=== PATIENT | male | born 1960 | race Caucasian/White ===

== ENCOUNTER 2021-10-19 08:41 | Inpatient (IN) | payer OTHER ==
[~2021-10-19] VITALS: Ht 172.7 cm; Wt 82.6 kg
[2021-10-19] MEDS ORDERED: LIDOCAINE HCL 1% 20ML VIAL (Pyxis) INJ INFIL STA (08:52)
[2021-10-19] MEDS ORDERED: SODIUM CHLORIDE 0.9% 1000ML BAG (SEPSIS BOLUS) IV ONE (09:00)
[2021-10-19] MEDS ORDERED: CEFTRIAXONE 1 G PREMIX 50 ML IV ONE (09:00)
[2021-10-19 09:37] LABS: CHLORIDE 104 mEq/L (98-107)
[2021-10-19 09:39] LABS: BASOPHILS % 0.5 % (0.0-2.0); EOSINOPHILS % 0.3 % (0.0-5.0); HEMATOCRIT. 23.7 % (42.0-52.0); HEMOGLOBIN. 7.8 g/dL (14.0-18.0); LYMPHOCYTES % 14.8 % (20.0-50.0); MEAN CORPUSCULAR HEMOGLOBIN 28.6 pg (28.0-32.0); MEAN CORPUSCULAR VOLUME 86.8 fL (80.0-94.0); MEAN PLATELET VOLUME 10.2 fl (7.4-10.4); MONOCYTES % 13.1 % (2.0-8.0); NEUTROPHILS % 71.3 % (40.0-76.0); PLATELET 122 x1000/uL (130-400); RED BLOOD CELL COUNT 2.73 mill/uL (4.7-6.1); RED CELL DISTRIBUTION WIDTH 16.8 % (11.6-14.6)
[2021-10-19 09:42] LABS: ETHANOL BLOOD < 10 mg/dL
[2021-10-19] MEDS ORDERED: HALOPERIDOL LACTATE 5MG/ML VIAL IM ONE (09:45)
[2021-10-19 09:52] LABS: BG BASE EXCESS -1.7 mmol/L (-2.0-2.0); BG CARBOXYHEMOGLOBIN 0.3 % (0.5-1.5); BG DEOXYHEMOGLOBIN 3.9 % (0.0-5.0); BG HCO3 ACT 21.8 mmol/L (22.0-26.0); BG METHEMOGLOBIN 0.3 % (0.0-1.5); BG OXYGEN SATURATION 96.1 % (92.0-98.5); BG OXYHEMOGLOBIN 95.5 % (94.0-97.0); BG PCO2 32.5 mmHg (35.0-45.0); BG PH 7.445 (7.350-7.450); BG PO2 85.5 mmHg (75.0-100.0); BG TOTAL HEMOGLOBIN 9.9 g/dL (12.0-18.0); BG VENT MODE ROOM AIR
[2021-10-19] MEDS ORDERED: IPRATROPIUM/ALBUTEROL 0.5-3(2.5)MG/3ML NEB NEB PRN (15:30)
[2021-10-19] MEDS ORDERED: CLONIDINE 0.1MG TABLET PO PRN (15:30)
[2021-10-19] MEDS ORDERED: DIPHENHYDRAMINE 50MG/ML VIAL IV PRN (15:30)
[2021-10-19] MEDS ORDERED: ACETAMINOPHEN 325MG TABLET PO PRN (15:30)
[2021-10-19] MEDS ORDERED: LORAZEPAM 2MG/ML CPJ IV PRN (15:30)
[2021-10-19] MEDS ORDERED: GUAIFENESIN 200MG/10ML SUGAR FREE UDC PO PRN (15:30)
[2021-10-19] MEDS ORDERED: DOCUSATE SODIUM 100MG CAPSULE PO PRN (15:30)
[2021-10-19] MEDS ORDERED: MAGNESIUM/ALUMINUM HYDROXIDE/SIMETHICONE 30ML UDC PO PRN (15:30)
[2021-10-19] MEDS ORDERED: NA PHOS,M-B/NA PHOS,DI-BA ENEMA 118ML PR PRN (15:30)
[2021-10-19] MEDS ORDERED: ONDANSETRON HCL 4MG/2ML INJ IV PRN (15:30)
[2021-10-19] MEDS ORDERED: NALOXONE HCL 0.4MG/ML VIAL IV PRN (15:45)
[2021-10-19] MEDS ORDERED: LEVOTHYROXINE SODIUM 50MCG TABLET PO NR (16:45)
[2021-10-19 19:42] LABS: VITAMIN B12 SERUM 1366 pg/mL (211-911)
[2021-10-19 19:49] LABS: FOLIC ACID (FOLATE) SERUM > 20.00 ng/mL (>5.38)
[2021-10-19 23:04] LABS: HEMATOCRIT 21.5 % (42.0-52.0); HEMOGLOBIN 7.3 g/dL (14.0-18.0)
[2021-10-20 00:33] LABS: HEMATOCRIT 21.3 % (42.0-52.0); HEMOGLOBIN 7.3 g/dL (14.0-18.0)
[2021-10-20 04:31] VITALS: BP 115/74
[2021-10-20] MEDS ORDERED: SPIR25TA6 MT (07:46)
[2021-10-20] MEDS ORDERED: EPOE200014 SQ (07:46)
[2021-10-20] MEDS ORDERED: FURO20TA4 PO (07:46)
[2021-10-20] MEDS ORDERED: OMEP10CA5 MT (07:46)
[2021-10-20 08:00] VITALS: BP 113/50
[2021-10-20] MEDS: PANTOPRAZOLE SODIUM 40 MG/VIAL IV SCH (09:00)
[2021-10-20] MEDS: FUROSEMIDE 40MG/4ML VIAL IV SCH (09:00)
[2021-10-20 10:20] LABS: HEMATOCRIT 23.1 % (42.0-52.0); HEMOGLOBIN 7.5 g/dL (14.0-18.0)
[2021-10-20 10:29] LABS: CHLORIDE 107 mEq/L (98-107)
[2021-10-20 12:00] VITALS: BP 114/72
[2021-10-20 16:00] VITALS: BP 114/51
[2021-10-20 20:00] VITALS: BP 134/59
[2021-10-20 22:01] LABS: HEMATOCRIT 22.8 % (42.0-52.0); HEMOGLOBIN 7.5 g/dL (14.0-18.0)
[2021-10-20] MEDS: LACTULOSE 20G/30ML UDC PO SCH (22:05)
[2021-10-21] VITALS: BP 101/52
[2021-10-21 00:54] LABS: HEMATOCRIT 21.8 % (42.0-52.0); HEMOGLOBIN 7.3 g/dL (14.0-18.0)
[2021-10-21 04:00] VITALS: BP 108/58
[2021-10-21] MEDS: LACTULOSE 20G/30ML UDC PO SCH ×3 (06:00→22:34)
[2021-10-21 07:41] LABS: INR 1.3; PROTHROMBIN TIME 13.9 sec (9.6-11.0)
[2021-10-21 07:43] LABS: BASOPHILS % 0.6 % (0.0-2.0); EOSINOPHILS % 2.1 % (0.0-5.0); HEMOGLOBIN. 8.3 g/dL (14.0-18.0); LYMPHOCYTES % 22.9 % (20.0-50.0); MEAN CORPUSCULAR HEMOGLOBIN 29.6 pg (28.0-32.0); MEAN CORPUSCULAR VOLUME 88.6 fL (80.0-94.0); MEAN PLATELET VOLUME 9.4 fl (7.4-10.4); MONOCYTES % 13.9 % (2.0-8.0); NEUTROPHILS % 60.5 % (40.0-76.0); PLATELET 134 x1000/uL (130-400); RED BLOOD CELL COUNT 2.82 mill/uL (4.7-6.1); RED CELL DISTRIBUTION WIDTH 16.5 % (11.6-14.6)
[2021-10-21 08:00] VITALS: BP 112/59
[2021-10-21 08:12] LABS: CHLORIDE 108 mEq/L (98-107)
[2021-10-21] MEDS: FUROSEMIDE 40MG/4ML VIAL IV SCH (10:05)
[2021-10-21] MEDS: PANTOPRAZOLE SODIUM 40 MG/VIAL IV SCH (10:05)
[2021-10-21 12:00] VITALS: BP 115/61
[2021-10-21 16:00] VITALS: BP 100/56
[2021-10-21] MEDS ORDERED: PROPOFOL 200MG/20ML VIAL IV ONE ×2 (17:41→17:55)
[2021-10-21] MEDS ORDERED: LIDOCAINE HCL 1% 20ML VIAL (Pyxis) INJ ONE (17:41)
[2021-10-21 20:00] VITALS: BP 110/63
[2021-10-21 20:27] LABS: HEMATOCRIT 23.5 % (42.0-52.0); HEMOGLOBIN 7.8 g/dL (14.0-18.0)
[2021-10-21] MEDS: VANCOMYCIN 1 G PREMIX 200 ML IV SCH (23:11)
[2021-10-22] VITALS: BP 114/59
[2021-10-22 00:35] LABS: HEMATOCRIT 23.1 % (42.0-52.0); HEMOGLOBIN 7.6 g/dL (14.0-18.0)
[2021-10-22 04:00] VITALS: BP 132/62
[2021-10-22] MEDS: LACTULOSE 20G/30ML UDC PO SCH ×3 (06:36→22:47)
[2021-10-22 07:55] LABS: BASOPHILS % 1.1 % (0.0-2.0); EOSINOPHILS % 1.5 % (0.0-5.0); HEMATOCRIT. 22.3 % (42.0-52.0); HEMOGLOBIN. 7.6 g/dL (14.0-18.0); LYMPHOCYTES % 23.2 % (20.0-50.0); MEAN CORPUSCULAR HEMOGLOBIN 29.8 pg (28.0-32.0); MEAN CORPUSCULAR VOLUME 87.7 fL (80.0-94.0); MEAN PLATELET VOLUME 9.3 fl (7.4-10.4); MONOCYTES % 13.1 % (2.0-8.0); NEUTROPHILS % 61.1 % (40.0-76.0); PLATELET 117 x1000/uL (130-400); RED BLOOD CELL COUNT 2.54 mill/uL (4.7-6.1); RED CELL DISTRIBUTION WIDTH 16.9 % (11.6-14.6)
[2021-10-22 08:00] VITALS: BP 143/74
[2021-10-22] MEDS: PANTOPRAZOLE SODIUM 40 MG/VIAL IV SCH (08:48)
[2021-10-22] MEDS: FUROSEMIDE 40MG/4ML VIAL IV SCH (08:48)
[2021-10-22 12:00] VITALS: BP 116/56
[2021-10-22] MEDS ORDERED: SODIUM BICARBONATE 4% (2.4MEQ) 5ML VIAL IV ONE (12:23)
[2021-10-22] MEDS ORDERED: LIDOCAINE HCL 1% 20ML VIAL (Pyxis) INJ ONE (12:23)
[2021-10-22] MEDS: HYDROCODONE/ACETAMINOPHEN 5/325MG TABLET PO PRN (14:10)
[2021-10-22] MEDS: VANCOMYCIN 1 G PREMIX 200 ML IV SCH (15:30)
[2021-10-22 16:00] VITALS: BP 94/42
[2021-10-22 18:06] LABS: INR 1.5; PROTHROMBIN TIME 15.7 sec (9.6-11.0)
[2021-10-22 20:00] VITALS: BP 114/62
[2021-10-23] VITALS: BP 116/58
[2021-10-23 04:00] VITALS: BP 103/55
[2021-10-23] MEDS: LACTULOSE 20G/30ML UDC PO SCH ×3 (06:17→22:07)
[2021-10-23 08:00] VITALS: BP 99/55
[2021-10-23] MEDS: PANTOPRAZOLE SODIUM 40 MG/VIAL IV SCH ×2 (09:00→17:51)
[2021-10-23] MEDS: FUROSEMIDE 40MG/4ML VIAL IV SCH (09:00)
[2021-10-23] MEDS: VANCOMYCIN 1 G PREMIX 200 ML IV SCH (10:30)
[2021-10-23] MEDS ORDERED: POTASSIUM CHLORIDE 20MEQ TABLET SR PO SCH (10:45)
[2021-10-23 12:00] VITALS: BP 107/61
[2021-10-23 16:00] VITALS: BP 117/67
[2021-10-23 20:00] VITALS: BP 108/69
[2021-10-23] MEDS: WATER IV SCH ×2 (21:42→23:43)
[2021-10-23] MEDS: DEXTROSE IV SCH ×2 (21:42→23:43)
[2021-10-23] MEDS: PENICILLIN POTASSIUM IV SCH ×2 (21:42→23:43)
[2021-10-24] VITALS: BP 106/57
[2021-10-24 04:00] VITALS: BP 128/56
[2021-10-24] MEDS: PENICILLIN POTASSIUM IV SCH ×5 (04:54→19:51)
[2021-10-24] MEDS: WATER IV SCH ×5 (04:54→19:51)
[2021-10-24] MEDS: DEXTROSE IV SCH ×5 (04:54→19:51)
[2021-10-24] MEDS: LACTULOSE 20G/30ML UDC PO SCH ×3 (05:08→22:00)
[2021-10-24 06:49] LABS: EOSINOPHILS % 1.7 % (0.0-5.0); HEMATOCRIT. 22.4 % (42.0-52.0); HEMOGLOBIN. 7.7 g/dL (14.0-18.0); LYMPHOCYTES % 22.2 % (20.0-50.0); MEAN CORPUSCULAR HEMOGLOBIN 30.3 pg (28.0-32.0); MEAN CORPUSCULAR VOLUME 87.4 fL (80.0-94.0); MEAN PLATELET VOLUME 9.4 fl (7.4-10.4); MONOCYTES % 13.6 % (2.0-8.0); NEUTROPHILS % 61.5 % (40.0-76.0); PLATELET 102 x1000/uL (130-400); RED BLOOD CELL COUNT 2.56 mill/uL (4.7-6.1); RED CELL DISTRIBUTION WIDTH 16.5 % (11.6-14.6)
[2021-10-24 08:00] VITALS: BP 105/58
[2021-10-24] MEDS ORDERED: POTASSIUM CHLORIDE 20MEQ TABLET SR PO SCH (08:45)
[2021-10-24] MEDS ORDERED: FUROSEMIDE 20MG/2ML VIAL IVP SCH (09:00)
[2021-10-24] MEDS: PANTOPRAZOLE SODIUM 40 MG/VIAL IV SCH ×2 (09:13→16:45)
[2021-10-24] MEDS ORDERED: POTASSIUM CHLORIDE 20MEQ TABLET SR PO NR (09:15)
[2021-10-24 12:00] VITALS: BP 105/60
[2021-10-24] MEDS: HYDROCODONE/ACETAMINOPHEN 5/325MG TABLET PO PRN (12:55)
[2021-10-24 16:00] VITALS: BP 109/68
[2021-10-24] MEDS ORDERED: DIATR MEGLU/DIATRIZOATE SOLN 30ML PO NR (16:00)
[2021-10-24 20:00] VITALS: BP 95/67
[2021-10-25] VITALS: BP 106/66
[2021-10-25] MEDS: WATER IV SCH ×5 (00:35→16:21)
[2021-10-25] MEDS: PENICILLIN POTASSIUM IV SCH ×5 (00:35→16:21)
[2021-10-25] MEDS: DEXTROSE IV SCH ×5 (00:35→16:21)
[2021-10-25 04:00] VITALS: BP 110/57
[2021-10-25] MEDS: LACTULOSE 20G/30ML UDC PO SCH ×2 (06:46→14:38)
[2021-10-25 07:25] LABS: BASOPHILS % 0.8 % (0.0-2.0); EOSINOPHILS % 1.2 % (0.0-5.0); HEMATOCRIT. 23.6 % (42.0-52.0); LYMPHOCYTES % 19.6 % (20.0-50.0); MEAN CORPUSCULAR HEMOGLOBIN 29.4 pg (28.0-32.0); MEAN CORPUSCULAR VOLUME 87.2 fL (80.0-94.0); MEAN PLATELET VOLUME 9.4 fl (7.4-10.4); MONOCYTES % 12.1 % (2.0-8.0); NEUTROPHILS % 66.3 % (40.0-76.0); PLATELET 101 x1000/uL (130-400); RED BLOOD CELL COUNT 2.71 mill/uL (4.7-6.1); RED CELL DISTRIBUTION WIDTH 16.9 % (11.6-14.6)
[2021-10-25 08:00] VITALS: BP 119/62
[2021-10-25] MEDS: PANTOPRAZOLE SODIUM 40 MG/VIAL IV SCH ×2 (09:36→16:35)
[2021-10-25 12:00] VITALS: BP 107/57
[2021-10-25] MEDS ORDERED: DIATR MEGLU/DIATRIZOATE SOLN 30ML PO SCH (12:00)
[2021-10-25] MEDS ORDERED: METR500T MT (15:49)
[2021-10-25 15:53] VITALS: BP 107/57
[2021-10-25 16:34] VITALS: BP 108/72
== END 2021-10-25 17:00 | disposition home or self-care (01) | DRG 441 ==
LOC: ER 08:41 → MICUSO 12:40 → 8WST 10-20 03:23
PROVIDERS: ADMIT Internal Medicine; ATTEND Internal Medicine
PROC: 06L38CZ Occlusion of Esophageal Vein with Extraluminal Device, Via Natural or Artificial Opening Endoscopic (ICD-10-PCS; principal; 2021-10-21)
PROC: 0DB98ZX Excision of Duodenum, Via Natural or Artificial Opening Endoscopic, Diagnostic (ICD-10-PCS; 2021-10-21)
PROC: 0DB78ZX Excision of Stomach, Pylorus, Via Natural or Artificial Opening Endoscopic, Diagnostic (ICD-10-PCS; 2021-10-21)
PROC: 0W9G3ZZ Drainage of Peritoneal Cavity, Percutaneous Approach (ICD-10-PCS; 2021-10-22)
DX: K72.00 Acute and subacute hepatic failure without coma (principal); I50.33 Acute on chronic diastolic (congestive) heart failure; N17.0 Acute kidney failure with tubular necrosis; E46 Unspecified protein-calorie malnutrition; I13.0 Hypertensive heart and chronic kidney disease with heart failure and stage 1 through stage 4 chronic kidney disease, or unspecified chronic kidney disease; I85.10 Secondary esophageal varices without bleeding; R78.81 Bacteremia; D64.9 Anemia, unspecified; E03.9 Hypothyroidism, unspecified; N18.9 Chronic kidney disease, unspecified; Z20.822 Contact with and (suspected) exposure to COVID-19; D69.6 Thrombocytopenia, unspecified; K29.70 Gastritis, unspecified, without bleeding; K31.89 Other diseases of stomach and duodenum; K70.31 Alcoholic cirrhosis of liver with ascites; F10.20 Alcohol dependence, uncomplicated; F41.9 Anxiety disorder, unspecified; Z87.11 Personal history of peptic ulcer disease; Z87.891 Personal history of nicotine dependence; Z68.27 Body mass index [BMI] 27.0-27.9, adult
CPT/HCPCS: 36415; 36600; 49083; 71045; 74176; 76700; 80048; 80053; 80076; 80320; 82140; 82248; 82270; 82375; 82607; 82746; 82805; 83605; 83880; 84145; 84439; 84443; 84484; 85014; 85018; 85025; 85044; 87075; 87426; 88305; 88312; 88313; 93005; 93306; 99285; C9113; J0696; J1630; J1940; J2540; J2704; J3370; J3490; J7030; J7070; Q9963; G0480